=== PATIENT | male | born 1950 | race African-American/Black ===

== ENCOUNTER → 2017-05-07 | Outpatient (CLI) | payer MEDICARE ==
[~2017-05-07] MED LIST: ACID CONTROL150 MG PO; ADVAIR 500/501 DISK IH; BAYER CHEWABLE81 MG PO; CELEBREX200 MG PO; CHANTIX0.5 MG PO; CYCLOBENZAPRINE10 MG PO; Combivent IH; DUONEB 2.5-0.5 M3 ML AEROSOL; DUONEB3 ML IH; GLUCOPHAGE500 MG PO; HYCODAN SYRUP480 ML PO; Habitrol,Nicoderm CQ TD; LISINOPRIL10 MG PO; LOW DOSE ASPIRI81 M1 PO; METFORMIN HCL500 MG PO; MOBIC15 MG PO; OPANA ER7.5 MG PO; OXYCODONE HCL15 MG PO; PERCOCET 10/1 TABLET PO; PREDNISONE20 MG PO; PROAIR HFA8.5 GM IH; PROVENTIL,2.5 MG/3 M IH; PriLOSEC PO; RANITIDINE HCL150 M1 PO; ROXICODONE5 MG PO; SIMVASTATIN20 M1 PO; SPIRIVA1 INHALATI IH; SPIRIVA18 MCG IH; TESSALON PERLE100 MG PO; TESSALON200 MG PO; THEO-DUR,THEOC300 MG PO; VENTOLIN HFA18 GM IH; VITRUM SENIOR1 EAC1 PO; ZITHROMAX Z-PA250 MG PO; Zocor PO; predniSONE PO
== END | disposition home or self-care (01) ==
LOC: CDC 11:22
DX: Z01.810 Encounter for preprocedural cardiovascular examination (principal); L72.3 Sebaceous cyst; R94.31 Abnormal electrocardiogram [ECG] [EKG]
CPT/HCPCS: 93000

== ENCOUNTER 2017-05-09 07:02 | Emergency (ER) | payer OTHER ==
[~2017-05-09] VITALS: Ht 188 cm; Wt 92.7 kg
[~2017-05-09 07:02] MED LIST changes: -DUONEB 2.5-0.5 M3 ML AEROSOL
[2017-05-09 07:53] LABS: HEMATOCRIT 42.9 % (38.0-50.0); HEMOGLOBIN 14.2 G/DL (12.5-16.6); MCH 28.6 PG (29.0-34.0); MCHC 33.1 G/DL (30.0-36.0); MCV 86.5 FL (86-99); PLATELET COUNT 368 K/uL (156-360); RBC DIS.WIDTH-CV 12.8 % (11.8-14.6); RBC DIS.WIDTH-SD 40.4 % (39-53); RED BLOOD COUNT 4.96 M/uL (4.00-5.50); WHITE BLOOD COUNT 7.5 K/uL (4.1-10.2)
[2017-05-09 08:00] LABS: CHLORIDE 112 mEq/L (99-109); POTASSIUM 3.8 mEq/L (3.7-5.4); SODIUM 145 mEq/L (136-147)
[2017-05-09 08:01] LABS: GLUCOSE 98 mg/dL (70-99)
[2017-05-09 08:05] LABS: CREATININE 1.3 mg/dL (0.6-1.3); GFR ESTIMATE (CALCULATED) > 59 mL/min/ (58.99-99999)
[2017-05-09 08:06] LABS: UREA NITROGEN (BUN) 15 mg/dL (9-23)
[2017-05-09] MEDS ORDERED: PREDNISONE20 MG PO (09:26)
[2017-05-09] MEDS ORDERED: TESSALON PERLE100 MG PO (09:26)
[2017-05-09] MEDS ORDERED: DUONEB 2.5-0.5 M3 ML AEROSOL (09:26)
[2017-05-09 10:10] VITALS: BP 118/98
== END 2017-05-09 10:10 | disposition home or self-care (01) ==
LOC: EME 07:02
DX: J44.1 Chronic obstructive pulmonary disease with (acute) exacerbation (principal); F17.200 Nicotine dependence, unspecified, uncomplicated; K21.9 Gastro-esophageal reflux disease without esophagitis; Z79.82 Long term (current) use of aspirin
CPT/HCPCS: 71046; 80048; 83880; 85027; 93005; 94640; 99281; 99283; J7512

== ENCOUNTER 2017-05-23 18:56 | Inpatient (IN) | payer OTHER ==
[~2017-05-23] VITALS: Ht 188 cm; Wt 90.3 kg
[~2017-05-23 18:56] MED LIST changes: +DUONEB 2.5-0.5 M3 ML AEROSOL
[2017-05-23 19:46] LABS: BASOPHIL (%) 0.6 % (0-1); BASOPHIL COUNT 0.1 K/uL (0-0.1); EOSINOPHIL (%) 9.7 % (0-5); EOSINOPHIL COUNT 0.9 K/uL (0-0.3); HEMOGLOBIN 14.2 G/DL (12.5-16.6); IMMATURE GRANULOCYTE (%) 0.3 % (0.0-0.7); LYMPHOCYTE (%) 44.6 % (15-42); LYMPHOCYTE COUNT 4.2 K/uL (1.0-2.8); MCH 28.6 PG (29.0-34.0); MCHC 32.3 G/DL (30.0-36.0); MCV 88.5 FL (86-99); MONOCYTE (%) 10.7 % (3-12); NEUTROPHIL (%) 34.1 % (45-76); NEUTROPHIL COUNT 3.2 K/uL (1.8-6.4); PLATELET COUNT 387 K/uL (156-360); RBC DIS.WIDTH-CV 12.9 % (11.8-14.6); RBC DIS.WIDTH-SD 41.7 % (39-53); RED BLOOD COUNT 4.97 M/uL (4.00-5.50); WHITE BLOOD COUNT 9.4 K/uL (4.1-10.2)
[2017-05-23 19:54] LABS: CHLORIDE 106 mEq/L (99-109); POTASSIUM 3.9 mEq/L (3.7-5.4); SODIUM 143 mEq/L (136-147)
[2017-05-23 19:56] LABS: GLUCOSE 96 mg/dL (70-99)
[2017-05-23 20:00] LABS: CREATININE 1.4 mg/dL (0.6-1.3); GFR ESTIMATE (CALCULATED) > 59 mL/min/ (58.99-99999); UREA NITROGEN (BUN) 13 mg/dL (9-23)
[2017-05-23] MEDS ORDERED: ADVAIR 250/501 DISK IH (21:24)
[2017-05-23] MEDS ORDERED: OXYCODONE HCL15 MG PO (21:26)
[2017-05-23] MEDS ORDERED: THEOPHYLLINE400 MG PO (21:27)
[2017-05-23] MEDS ORDERED: OXYMORPHONE HCL10 M1 PO (21:28)
[2017-05-23] MEDS ORDERED: FLONASE16 G1 BOTH NARES (21:28)
[2017-05-23] MEDS ORDERED: ALEVE220 MG PO (21:29)
[2017-05-23] MEDS ORDERED: CENTRUM SILVER1 EAC5 PO (21:29)
[2017-05-24] VITALS (7 sets, daily range): BP systolic 123–170; BP diastolic 77–92
[2017-05-24 01:04] LABS: THEOPHYLLINE 5.8 MCG/ML (10-20)
[2017-05-24 06:16] LABS: CHLORIDE 106 MEQ/L (99-109); CREATININE 1.2 MG/DL (0.6-1.3); GFR ESTIMATE (CALCULATED) > 59 mL/min/ (58.99-99999); GLUCOSE 143 mg/dL (70-99); POTASSIUM 4.1 MEQ/L (3.7-5.4); SODIUM 141 MEQ/L (136-147); UREA NITROGEN (BUN) 17 mg/dL (9-23)
[2017-05-25 09:41] VITALS: BP 137/85
[2017-05-25 11:58] VITALS: BP 150/100
[2017-05-25 16:10] VITALS: BP 145/94
[2017-05-25 19:45] VITALS: BP 146/81
[2017-05-26 00:24] VITALS: BP 130/94
[2017-05-26 07:31] VITALS: BP 143/81
[2017-05-26] MEDS ORDERED: ADVAIR HFA120 INHALA IH (09:45)
[2017-05-26] MEDS ORDERED: SPIRIVA RESPIMAT4 GM IH (09:46)
[2017-05-26] MEDS ORDERED: PREDNISONE10 MG PO (09:47)
[2017-05-26] MEDS ORDERED: NORVASC5 MG PO (09:48)
== END 2017-05-26 12:00 | disposition home or self-care (01) | DRG 191 ==
LOC: EME 18:56 → 5WEST 23:50 → EDOF 23:50 → ENRESERV 23:52 → 5WEST 05-24 01:32
PROVIDERS: Emergency Medicine; Hospitalist
DX: J44.1 Chronic obstructive pulmonary disease with (acute) exacerbation (principal); N17.9 Acute kidney failure, unspecified; J44.0 Chronic obstructive pulmonary disease with (acute) lower respiratory infection; J20.9 Acute bronchitis, unspecified; I10 Essential (primary) hypertension; E11.9 Type 2 diabetes mellitus without complications; E78.5 Hyperlipidemia, unspecified; F17.210 Nicotine dependence, cigarettes, uncomplicated; E86.0 Dehydration; Z79.51 Long term (current) use of inhaled steroids; Z83.3 Family history of diabetes mellitus
CPT/HCPCS: 71045; 80048; 80198; 82948; 85025; 94640; 94640 76; 94760; 99202; 99281; 99284; G0378; J1650; J2920; J2930; J7030

== ENCOUNTER 2017-07-08 21:11 | Inpatient (IN) | payer OTHER ==
[~2017-07-08] VITALS: Ht 188 cm; Wt 95.5 kg
[~2017-07-08 21:11] MED LIST changes: +ADVAIR 250/501 DISK IH; +ADVAIR HFA120 INHAL1 IH; +ADVAIR HFA120 INHALA IH; +ALEVE220 MG PO; +ASPIRIN81 M2 PO; +CENTRUM SILVER1 EAC5 PO; +FLONASE16 G1 BOTH NARES; +NICODERM CQ1 EAC1 TD; +NORVASC5 MG PO; +OXYCODONE HCL E15 MG PO; +OXYMORPHONE HCL10 M1 PO; +PERCOCET 5/31 TABLET PO; +PREDNISONE10 MG PO; +SPIRIVA RESPIMAT4 GM IH; +THEO-24400 MG PO; +THEOPHYLLINE400 MG PO
[2017-07-08 21:50] LABS: HEMATOCRIT 41.2 % (38.0-50.0); HEMOGLOBIN 13.7 G/DL (12.5-16.6); MCH 28.5 PG (29.0-34.0); MCHC 33.3 G/DL (30.0-36.0); MCV 85.8 FL (86-99); PLATELET COUNT 494 K/uL (156-360); RBC DIS.WIDTH-SD 40.9 % (39-53); WHITE BLOOD COUNT 8.2 K/uL (4.1-10.2)
[2017-07-08 22:02] LABS: CHLORIDE 107 mEq/L (99-109); POTASSIUM 3.4 mEq/L (3.7-5.4); SODIUM 143 mEq/L (136-147)
[2017-07-08 22:04] LABS: GLUCOSE 114 mg/dL (70-99)
[2017-07-08 22:08] LABS: CREATININE 1.4 mg/dL (0.6-1.3); GFR ESTIMATE (CALCULATED) > 59 mL/min/ (58.99-99999)
[2017-07-08 22:09] LABS: UREA NITROGEN (BUN) 14 mg/dL (9-23)
[2017-07-09 00:10] LABS: TROP-I INTERPRETATION NEGATIVE; TROPONIN-I < 0.01 ng/mL (0.0-0.30)
[2017-07-09 04:17] VITALS: BP 154/89
[2017-07-09 06:27] LABS: CHLORIDE 108 MEQ/L (99-109); CREATININE 1.3 MG/DL (0.6-1.3); GFR ESTIMATE (CALCULATED) > 59 mL/min/ (58.99-99999); POTASSIUM 3.9 MEQ/L (3.7-5.4); SODIUM 143 MEQ/L (136-147); UREA NITROGEN (BUN) 15 mg/dL (9-23)
[2017-07-09 06:29] LABS: GLUCOSE 186 mg/dL (70-99)
[2017-07-09 07:31] VITALS: BP 128/75
[2017-07-09 08:01] LABS: THYROTROPIN (TSH) 0.91 MIU/L (0.4-5.5)
[2017-07-09] MEDS ORDERED: OXYMORPHONE HCL10 M1 PO (10:27)
[2017-07-09 16:46] VITALS: BP 166/77
[2017-07-09 19:09] VITALS: BP 122/98
[2017-07-09 23:45] VITALS: BP 132/91
[2017-07-10 03:25] VITALS: BP 134/90
[2017-07-10 06:24] LABS: CHLORIDE 109 MEQ/L (99-109); CREATININE 1.1 MG/DL (0.6-1.3); GFR ESTIMATE (CALCULATED) > 59 mL/min/ (58.99-99999); GLUCOSE 141 mg/dL (70-99); SODIUM 140 MEQ/L (136-147); UREA NITROGEN (BUN) 18 mg/dL (9-23)
[2017-07-10 06:27] LABS: POTASSIUM 4.8 MEQ/L (3.7-5.4)
[2017-07-10 08:18] VITALS: BP 140/75
[2017-07-10] MEDS ORDERED: AZITHROMYCIN500 M1 PO (10:37)
[2017-07-10] MEDS ORDERED: SPIRIVA RESPIMAT4 GM IH (10:38)
[2017-07-10] MEDS ORDERED: MEDROL DOSEPAK4 MG PO (10:39)
[2017-07-10] MEDS ORDERED: LOTRISONE15 GM TP (10:40)
== END 2017-07-10 12:22 | disposition home or self-care (01) | DRG 191 ==
LOC: EME 21:11 → 5EAST 07-09 02:38 → EDOF 07-09 02:38 → 5EAST 07-09 02:38 → ENRESERV 07-09 02:40 → 5EAST 07-09 03:50
PROVIDERS: Hospitalist; Internal Medicine
DX: J44.1 Chronic obstructive pulmonary disease with (acute) exacerbation (principal); J44.0 Chronic obstructive pulmonary disease with (acute) lower respiratory infection; J20.9 Acute bronchitis, unspecified; N17.9 Acute kidney failure, unspecified; E86.0 Dehydration; E87.6 Hypokalemia; E78.5 Hyperlipidemia, unspecified; I10 Essential (primary) hypertension; R00.0 Tachycardia, unspecified; R73.03 Prediabetes; F17.210 Nicotine dependence, cigarettes, uncomplicated; Z79.82 Long term (current) use of aspirin
CPT/HCPCS: 71046; 80048; 80198; 82948; 84443; 84484; 85027; 85379; 87070; 87205; 93005; 94640; 94640 76; 94644; 94799; 99202; 99281; 99285; G0378; J1100; J1815; J2930; J3475; J7030

== ENCOUNTER 2017-08-08 22:25 | Emergency (ER) | payer OTHER ==
[~2017-08-08] VITALS: Ht 188 cm; Wt 92.6 kg
[~2017-08-08 22:25] MED LIST changes: +AZITHROMYCIN500 M1 PO; +LOTRISONE15 GM TP; +MEDROL DOSEPAK4 MG PO
[2017-08-09 00:08] LABS: HEMATOCRIT 40.4 % (38.0-50.0); HEMOGLOBIN 13.5 G/DL (12.5-16.6); MCH 28.9 PG (29.0-34.0); MCHC 33.4 G/DL (30.0-36.0); MCV 86.5 FL (86-99); PLATELET COUNT 412 K/uL (156-360); RBC DIS.WIDTH-CV 13.3 % (11.8-14.6); RBC DIS.WIDTH-SD 41.8 % (39-53); RED BLOOD COUNT 4.67 M/uL (4.00-5.50); WHITE BLOOD COUNT 7.1 K/uL (4.1-10.2)
[2017-08-09 00:24] LABS: CHLORIDE 107 mEq/L (99-109); POTASSIUM 3.6 mEq/L (3.7-5.4); SODIUM 144 mEq/L (136-147)
[2017-08-09 00:25] LABS: GLUCOSE 102 mg/dL (70-99)
[2017-08-09 00:29] LABS: CREATININE 1.2 mg/dL (0.6-1.3); GFR ESTIMATE (CALCULATED) > 59 mL/min/ (58.99-99999)
[2017-08-09 00:30] LABS: UREA NITROGEN (BUN) 14 mg/dL (9-23)
[2017-08-09] MEDS ORDERED: PREDNISONE20 MG PO (02:41)
[2017-08-09] MEDS ORDERED: ZITHROMAX Z-PA250 MG PO (02:41)
[2017-08-09 03:19] VITALS: BP 136/88
== END 2017-08-09 03:21 | disposition home or self-care (01) ==
LOC: EME 22:25
DX: J44.1 Chronic obstructive pulmonary disease with (acute) exacerbation (principal); E78.5 Hyperlipidemia, unspecified; E11.9 Type 2 diabetes mellitus without complications; F17.200 Nicotine dependence, unspecified, uncomplicated; Z79.82 Long term (current) use of aspirin
CPT/HCPCS: 71046; 80048; 85027; 93005; 94640; 99281; 99284

== ENCOUNTER 2017-09-18 02:08 | Emergency (ER) | payer OTHER ==
[~2017-09-18] VITALS: Ht 188 cm; Wt 88.9 kg
[2017-09-18 02:30] LABS: MCHC 33.3 G/DL (30.0-36.0); PLATELET COUNT 378 K/uL (156-360); RBC DIS.WIDTH-CV 13.1 % (11.8-14.6); RBC DIS.WIDTH-SD 41.6 % (39-53); RED BLOOD COUNT 4.83 M/uL (4.00-5.50); WHITE BLOOD COUNT 7.5 K/uL (4.1-10.2)
[2017-09-18 02:38] LABS: CHLORIDE 108 mEq/L (99-109); POTASSIUM 3.5 mEq/L (3.7-5.4); SODIUM 143 mEq/L (136-147)
[2017-09-18 02:40] LABS: GLUCOSE 96 mg/dL (70-99)
[2017-09-18 02:44] LABS: CREATININE 1.1 mg/dL (0.6-1.3); GFR ESTIMATE (CALCULATED) > 59 mL/min/ (58.99-99999)
[2017-09-18 02:45] LABS: UREA NITROGEN (BUN) 9 mg/dL (9-23)
[2017-09-18 03:54] LABS: CARBON DIOXIDE (BICARBONATE) 26.7 MEQ/L (20-31)
[2017-09-18 04:13] LABS: TROP-I INTERPRETATION NEGATIVE; TROPONIN-I < 0.01 ng/mL (0.0-0.30)
[2017-09-18] MEDS ORDERED: PREDNISONE10 M1 PO (06:24)
[2017-09-18 06:35] VITALS: BP 135/110
== END 2017-09-18 06:36 | disposition home or self-care (01) ==
LOC: EME 02:08
PROVIDERS: Emergency Medicine
DX: J44.1 Chronic obstructive pulmonary disease with (acute) exacerbation (principal); E78.5 Hyperlipidemia, unspecified; E11.9 Type 2 diabetes mellitus without complications; F17.200 Nicotine dependence, unspecified, uncomplicated; Z79.82 Long term (current) use of aspirin
CPT/HCPCS: 71046; 80048; 82803; 84484; 85027; 93005; 94640; 94640 76; 99281; 99284; J7512